=== PATIENT | female | born 1960 | race Caucasian/White ===

== ENCOUNTER 2019-07-13 21:03 | Inpatient (IN) | payer OTHER ==
--- NOTE | 2019-07-13 21:09 | ED ---
Psych HPI <Raphael Gonzales - Last Filed: 07/14/19 10:51> <Tigist Heredia - Last Filed: 07/20/19 14:13> - General Source: RN notes reviewed, old records reviewed Limitations: altered mental status - History of Present Illness MD Complaint: feels depressed, altered mental status -: unknown History of same: Yes Quality: constant, getting worse Improves With: none Worsens With: none Associated Symptoms: denies other symptoms Treatments Prior to Arrival: placed on mental health hold <Ross Herzog - Last Filed: 07/21/19 00:02> - General Stated Complaint: Mental Health Time Seen by Provider: 07/13/19 21:08 - History of Present Illness Initial Comments: This is a 59-year-old female with history of alcohol abuse patient coming in for psychiatric evaluation under petition, patient was found to be unfit and a danger to herself and then brought in for psychiatric evaluation site. Patient is difficult historian difficult to give history of present illness and difficult to question secondary to clinical and psychiatric condition (Ross Herzog) - Related Data Previous Rx's Medication Instructions Recorded Acetaminophen Tab [Tylenol] 650 mg PO Q4HR PRN tab 07/17/19 Folic Acid 1 mg PO DAILY 30 Days tab 07/17/19 [place] ER [Lithobid] 450 mg PO DAILY 30 Days tablet.er 07/17/19 Multivitamins, Thera [Multivitamin 1 each PO DAILY 30 Days tab 07/17/19 (formulary)] Nicotine 14Mg/24Hr Patch [Habitrol] 1 patch TRANSDERM DAILY 14 Days 07/17/19 patch QUEtiapine [SEROquel] 12.5 mg PO DAILY 30 Days tab 07/17/19 QUEtiapine [SEROquel] 100 mg PO HS 30 Days tab 07/17/19 Thiamine [Vitamin B-1] 100 mg PO DAILY 30 Days tab 07/17/19 traZODone HCL [Desyrel] 25 mg PO HS PRN #30 tab 07/17/19 Allergies Allergy/AdvReac Type Severity Reaction Status Date / Time No Known Allergies Allergy Unverified 07/14/19 11:54 Review of Systems ROS Other: All systems not noted in ROS Statement are negative. <Raphael Gonzales - Last Filed: 07/14/19 10:51> ROS Other: All systems not noted in ROS Statement are negative. <Tigist Heredia Tosin - Last Filed: 07/20/19 14:13> ROS Other: All systems not noted in ROS Statement are negative. <Ross Herzog - Last Filed: 07/21/19 00:02> ROS Statement: Those systems with pertinent positive or pertinent negative responses have been documented in the HPI. General Exam General appearance: alert, in no apparent distress Head exam: Present: atraumatic, normocephalic, normal inspection Eye exam: Present: normal appearance, PERRL, EOMI. Absent: scleral icterus, conjunctival injection, periorbital swelling ENT exam: Present: normal exam, mucous membranes moist Neck exam: Present: normal inspection. Absent: tenderness, meningismus, lymphadenopathy Respiratory exam: Present: normal lung sounds bilaterally. Absent: respiratory distress, wheezes, rales, rhonchi, stridor Cardiovascular Exam: Present: regular rate, normal rhythm, normal heart sounds. Absent: systolic murmur, diastolic murmur, rubs, gallop, clicks GI/Abdominal exam: Present: soft, normal bowel sounds. Absent: distended, tenderness, guarding, rebound, rigid Extremities exam: Present: normal inspection, full ROM, normal capillary refill. Absent: tenderness, pedal edema, joint swelling, calf tenderness Back exam: Present: normal inspection Neurological exam: Present: alert, oriented X3, CN II-XII intact Psychiatric exam: Present: normal affect, normal mood Skin exam: Present: warm, dry, intact, normal color. Absent: rash <Ross Herzog - Last Filed: 07/21/19 00:02> Course Vital Signs 07/13/19 07/14/19 07/14/19 21:14 01:55 07:01 Temperature 97.3 F L 97.9 F Pulse Rate 74 74 74 Pulse Rate [ Right Sitting Brachial] Respiratory 16 20 16 Rate Blood Pressure 117/83 114/80 132/72 Blood Pressure [Right Arm] O2 Sat by Pulse 95 100 98 Oximetry 07/14/19 10:34 Temperature 97.3 F L Pulse Rate Pulse Rate [ 108 H Right Sitting Brachial] Respiratory 16 Rate Blood Pressure Blood Pressure 111/68 [Right Arm] O2 Sat by Pulse 98 Oximetry Medical Decision Making - Lab Data Result diagrams: 07/14/19 04:00 07/14/19 04:00 <Raphael Gonzales - Last Filed: 07/14/19 10:51> - Lab Data Result diagrams: 07/14/19 04:00 07/14/19 04:00 <Tigist Heredia - Last Filed: 07/20/19 14:13> - Lab Data Result diagrams: 07/14/19 04:00 07/14/19 04:00 <Ross Herzog - Last Filed: 07/21/19 00:02> - Medical Decision Making The patient is evaluated by EPS and they do feel that the patient would benefit from inpatient psychiatric placement. I did fill out a certification on the patient and she is currently awaiting placement. (Tigist Heredia) - Lab Data Lab Results 07/14/19 07/14/19 07/14/19 Range/Units 04:00 04:00 04:00 WBC 5.3 (3.8-10.6) k/uL RBC 3.70 L (3.80-5.40) m/uL Hgb 12.5 (11.4-16.0) gm/dL Hct 37.9 (34.0-46.0) % MCV 102.3 H (80.0-100.0) fL MCH 33.9 (25.0-35.0) pg MCHC 33.1 (31.0-37.0) g/dL RDW 13.8 (11.5-15.5) % Plt Count 257 (150-450) k/uL Neutrophils % 65 % Lymphocytes % 23 % Monocytes % 7 % Eosinophils % 3 % Basophils % 0 % Neutrophils # 3.4 (1.3-7.7) k/uL Lymphocytes # 1.2 (1.0-4.8) k/uL Monocytes # 0.4 (0-1.0) k/uL Eosinophils # 0.2 (0-0.7) k/uL Basophils # 0.0 (0-0.2) k/uL Macrocytosis Slight Sodium 136 L (137-145) mmol/L Potassium 4.6 (3.5-5.1) mmol/L Chloride 101 (98-107) mmol/L Carbon Dioxide 33 H (22-30) mmol/L Anion Gap 2 mmol/L BUN 2 L (7-17) mg/dL Creatinine 0.46 L (0.52-1.04) mg/dL Est GFR (CKD-EPI)AfAm >90 (>60 ml/min/1.73 sqM) Est GFR (CKD-EPI)NonAf >90 (>60 ml/min/1.73 sqM) Glucose 96 (74-99) mg/dL Estimated Ave Glu mg/dL 85 Hemoglobin A1c 4.6 (4.0-6.0) % Calcium 9.3 (8.4-10.2) mg/dL Total Bilirubin 0.3 (0.2-1.3) mg/dL AST 20 (14-36) U/L ALT 10 (4-34) U/L Alkaline Phosphatase 113 (38-126) U/L Total Protein 6.3 (6.3-8.2) g/dL Albumin 3.4 L (3.5-5.0) g/dL Triglycerides (<150) mg/dL Cholesterol (<200) mg/dL LDL Cholesterol, Calc (0-99) mg/dL HDL Cholesterol (40-60) mg/dL TSH (0.465-4.680) mIU/L Urine Color Urine Appearance (Clear) Urine pH (5.0-8.0) Ur Specific [place] (1.001-1.035) Urine Protein (Negative) Urine Glucose (UA) (Negative) Urine Ketones (Negative) Urine Blood (Negative) Urine Nitrite (Negative) Urine Bilirubin (Negative) Urine Urobilinogen (<2.0) mg/dL Ur Leukocyte Esterase (Negative) Urine Opiates Screen (NotDetected) Ur Oxycodone Screen (NotDetected) Urine Methadone Screen (NotDetected) Ur Propoxyphene Screen (NotDetected) Ur Barbiturates Screen (NotDetected) U Tricyclic Antidepress (NotDetected) Ur Phencyclidine Scrn (NotDetected) Ur Amphetamines Screen (NotDetected) U Methamphetamines Scrn (NotDetected) U Benzodiazepines Scrn (NotDetected) Urine Cocaine Screen (NotDetected) U Marijuana (THC) Screen (NotDetected) 07/14/19 07/14/19 Range/Units 04:00 05:50 WBC (3.8-10.6) k/uL RBC (3.80-5.40) m/uL Hgb (11.4-16.0) gm/dL Hct (34.0-46.0) % MCV (80.0-100.0) fL MCH (25.0-35.0) pg MCHC (31.0-37.0) g/dL RDW (11.5-15.5) % Plt Count (150-450) k/uL Neutrophils % % Lymphocytes % % Monocytes % % Eosinophils % % Basophils % % Neutrophils # (1.3-7.7) k/uL Lymphocytes # (1.0-4.8) k/uL Monocytes # (0-1.0) k/uL Eosinophils # (0-0.7) k/uL Basophils # (0-0.2) k/uL Macrocytosis Sodium (137-145) mmol/L Potassium (3.5-5.1) mmol/L Chloride (98-107) mmol/L Carbon Dioxide (22-30) mmol/L Anion Gap mmol/L BUN (7-17) mg/dL Creatinine (0.52-1.04) mg/dL Est GFR (CKD-EPI)AfAm (>60 ml/min/1.73 sqM) Est GFR (CKD-EPI)NonAf (>60 ml/min/1.73 sqM) Glucose (74-99) mg/dL Estimated Ave Glu mg/dL Hemoglobin A1c (4.0-6.0) % Calcium (8.4-10.2) mg/dL Total Bilirubin (0.2-1.3) mg/dL AST (14-36) U/L ALT (4-34) U/L Alkaline Phosphatase (38-126) U/L Total Protein (6.3-8.2) g/dL Albumin (3.5-5.0) g/dL Triglycerides 122 (<150) mg/dL Cholesterol 199 (<200) mg/dL LDL Cholesterol, Calc 102 H (0-99) mg/dL HDL Cholesterol 73 H (40-60) mg/dL TSH 2.160 (0.465-4.680) mIU/L Urine Color Light Yellow Urine Appearance Clear (Clear) Urine pH 7.5 (5.0-8.0) Ur Specific [place] 1.003 (1.001-1.035) Urine Protein Negative (Negative) Urine Glucose (UA) Negative (Negative) Urine Ketones Negative (Negative) Urine Blood Negative (Negative) Urine Nitrite Negative (Negative) Urine Bilirubin Negative (Negative) Urine Urobilinogen <2.0 (<2.0) mg/dL Ur Leukocyte Esterase Negative (Negative) Urine Opiates Screen Not Detected (NotDetected) Ur Oxycodone Screen Not Detected (NotDetected) Urine Methadone Screen Not Detected (NotDetected) Ur Propoxyphene Screen Not Detected (NotDetected) Ur Barbiturates Screen Not Detected (NotDetected) U Tricyclic Antidepress Not Detected (NotDetected) Ur Phencyclidine Scrn Not Detected (NotDetected) Ur Amphetamines Screen Not Detected (NotDetected) U Methamphetamines Scrn Not Detected (NotDetected) U Benzodiazepines Scrn Not Detected (NotDetected) Urine Cocaine Screen Not Detected (NotDetected) U Marijuana (THC) Screen Not Detected (NotDetected) Disposition Is patient prescribed a controlled substance at d/c from ED?: No Decision to Admit Reason: Admit from EC <Raphael Gonzales N - Last Filed: 07/14/19 10:51> <Tigist Heredia A - Last Filed: 07/20/19 14:13> <Ross Herzog - Last Filed: 07/21/19 00:02> Clinical Impression: Depression, Psychosis Disposition: ADMITTED IP TO THIS [facility] Condition: Stable
[2019-07-14] MEDS ORDERED: traZODone HCL 50 MG TAB PO ONE (01:30)
[2019-07-14 04:07] LABS: Basophils % (A) 0 %; Eosinophils # (A) 0.2 k/uL (0-0.7); Eosinophils % (A) 3 %; HCT 37.9 % (34.0-46.0); HGB 12.5 gm/dL (11.4-16.0); Lymphocytes # (A) 1.2 k/uL (1.0-4.8); Lymphocytes % (A) 23 %; MCH 33.9 pg (25.0-35.0); MCHC 33.1 g/dL (31.0-37.0); MCV 102.3 fL (80.0-100.0); Macrocytosis Slight; Mean Platelet Volume 7.6; Monocytes # (A) 0.4 k/uL (0-1.0); Monocytes % (A) 7 %; Neutrophils # (A) 3.4 k/uL (1.3-7.7); Neutrophils % (A) 65 %; Platelet Count 257 k/uL (150-450); RDW 13.8 % (11.5-15.5); WBC 5.3 k/uL (3.8-10.6)
[2019-07-14 04:18] LABS: Potassium 4.6 mmol/L (3.5-5.1)
[2019-07-14 04:19] LABS: ALT 10 U/L (4-34); AST 20 U/L (14-36); African American GFR (CKD) >90 (>60 ml/min/1.73 sqM); Albumin 3.4 g/dL (3.5-5.0); Alkaline Phosphatase 113 U/L (38-126); Anion Gap 2 mmol/L; Blood Urea Nitrogen 2 mg/dL (7-17); Calcium 9.3 mg/dL (8.4-10.2); Carbon Dioxide 33 mmol/L (22-30); Chloride 101 mmol/L (98-107); Glucose 96 mg/dL (74-99); Non-African American GFR(CKD) >90 (>60 ml/min/1.73 sqM); Sodium 136 mmol/L (137-145); Total Bilirubin 0.3 mg/dL (0.2-1.3); Total Protein 6.3 g/dL (6.3-8.2)
[2019-07-14 06:09] LABS: Appearance,Urine Clear (Clear); Bilirubin,Urine Negative (Negative); Blood,Urine Negative (Negative); Color,Urine Light Yellow; Glucose,Urine (UA) Negative (Negative); Ketones,Urine Negative (Negative); Leukocyte Esterase,Urine Negative (Negative); Nitrite,Urine Negative (Negative); PH, Urine 7.5 (5.0-8.0); Protein,Urine Negative (Negative); Specific Gravity,Urine 1.003 (1.001-1.035); Urobilinogen,Urine <2.0 mg/dL (<2.0)
[2019-07-14 06:20] LABS: Amphetamine Screen,Urine Not Detected (NotDetected); Barbiturate Screen,Urine Not Detected (NotDetected); Benzodiazepines Screen,Urine Not Detected (NotDetected); Cocaine Screen,Urine Not Detected (NotDetected); Methadone Screen, Urine Not Detected (NotDetected); Opiate Screen,Urine Not Detected (NotDetected); Oxycodone Screen, Urine Not Detected (NotDetected); Phencyclidine Screen,Urine Not Detected (NotDetected); Tricyclic Antidepressant,Urine Not Detected (NotDetected); Urn Cannabinoid Scrn Not Detected (NotDetected)
[2019-07-14] MEDS ORDERED: ACETAMINOPHEN TAB 325 MG TAB PO PRN (10:34)
[2019-07-14] MEDS ORDERED: ZIPRASIDONE 20 MG VIAL IM PRN (10:34)
[2019-07-14] MEDS ORDERED: MAGNESIUM HYDROXIDE 2,400 MG/10 ML CUP PO PRN (10:34)
[2019-07-14] MEDS ORDERED: MAG HYDROX/AL HYDROX/SIMETH 30 ML CUP PO PRN (10:34)
[2019-07-14] MEDS ORDERED: LORazepam 1 MG TAB PO PRN (10:34)
[2019-07-14] MEDS ORDERED: THIAMINE HCL 100 MG PO SCH (12:15)
[2019-07-14] MEDS ORDERED: LORazepam 2 MG/ML INJ IM PRN (12:17)
--- NOTE | 2019-07-14 12:36 | P.HP ---
Psychiatric H&P - . H&P Date: 07/14/19 History & Physical: Allergies Allergy/AdvReac Type Severity Reaction Status Date / Time No Known Allergies Allergy Unverified 07/14/19 11:54 Vital Signs Temp 97.3 F L 07/14/19 10:34 Pulse 108 H 07/14/19 10:34 Resp 16 07/14/19 10:34 BP 111/68 07/14/19 10:34 Pulse Ox 98 07/14/19 10:34 Intake & Output 07/13/19 07/14/19 07/14/19 18:59 06:59 18:59 Weight 44.906 kg 44.906 kg Laboratory Last Values WBC 5.3 k/uL (3.8-10.6) 07/14/19 04:00 RBC 3.70 m/uL (3.80-5.40) L 07/14/19 04:00 Hgb 12.5 gm/dL (11.4-16.0) 07/14/19 04:00 Hct 37.9 % (34.0-46.0) 07/14/19 04:00 MCV 102.3 fL (80.0-100.0) H 07/14/19 04:00 MCH 33.9 pg (25.0-35.0) 07/14/19 04:00 MCHC 33.1 g/dL (31.0-37.0) 07/14/19 04:00 RDW 13.8 % (11.5-15.5) 07/14/19 04:00 Plt Count 257 k/uL (150-450) 07/14/19 04:00 Neutrophils % 65 % 07/14/19 04:00 Lymphocytes % 23 % 07/14/19 04:00 Monocytes % 7 % 07/14/19 04:00 Eosinophils % 3 % 07/14/19 04:00 Basophils % 0 % 07/14/19 04:00 Neutrophils # 3.4 k/uL (1.3-7.7) 07/14/19 04:00 Lymphocytes # 1.2 k/uL (1.0-4.8) 07/14/19 04:00 Monocytes # 0.4 k/uL (0-1.0) 07/14/19 04:00 Eosinophils # 0.2 k/uL (0-0.7) 07/14/19 04:00 Basophils # 0.0 k/uL (0-0.2) 07/14/19 04:00 Macrocytosis Slight 07/14/19 04:00 Sodium 136 mmol/L (137-145) L 07/14/19 04:00 Potassium 4.6 mmol/L (3.5-5.1) 07/14/19 04:00 Chloride 101 mmol/L (98-107) 07/14/19 04:00 Carbon Dioxide 33 mmol/L (22-30) H 07/14/19 04:00 Anion Gap 2 mmol/L 07/14/19 04:00 BUN 2 mg/dL (7-17) L 07/14/19 04:00 Creatinine 0.46 mg/dL (0.52-1.04) L 07/14/19 04:00 Est GFR (CKD-EPI)AfAm >90 (>60 ml/min/1.73 sqM) 07/14/19 04:00 Est GFR (CKD-EPI)NonAf >90 (>60 ml/min/1.73 sqM) 07/14/19 04:00 Glucose 96 mg/dL (74-99) 07/14/19 04:00 Calcium 9.3 mg/dL (8.4-10.2) 07/14/19 04:00 Total Bilirubin 0.3 mg/dL (0.2-1.3) 07/14/19 04:00 AST 20 U/L (14-36) 07/14/19 04:00 ALT 10 U/L (4-34) 07/14/19 04:00 Alkaline Phosphatase 113 U/L (38-126) 07/14/19 04:00 Total Protein 6.3 g/dL (6.3-8.2) 07/14/19 04:00 Albumin 3.4 g/dL (3.5-5.0) L 07/14/19 04:00 Urine Color Light Yellow 07/14/19 05:50 Urine Appearance Clear (Clear) 07/14/19 05:50 Urine pH 7.5 (5.0-8.0) 07/14/19 05:50 Ur Specific [place] 1.003 (1.001-1.035) 07/14/19 05:50 Urine Protein Negative (Negative) 07/14/19 05:50 Urine Glucose (UA) Negative (Negative) 07/14/19 05:50 Urine Ketones Negative (Negative) 07/14/19 05:50 Urine Blood Negative (Negative) 07/14/19 05:50 Urine Nitrite Negative (Negative) 07/14/19 05:50 Urine Bilirubin Negative (Negative) 07/14/19 05:50 Urine Urobilinogen <2.0 mg/dL (<2.0) 07/14/19 05:50 Ur Leukocyte Esterase Negative (Negative) 07/14/19 05:50 Urine Opiates Screen Not Detected (NotDetected) 07/14/19 05:50 Ur Oxycodone Screen Not Detected (NotDetected) 07/14/19 05:50 Urine Methadone Screen Not Detected (NotDetected) 07/14/19 05:50 Ur Propoxyphene Screen Not Detected (NotDetected) 07/14/19 05:50 Ur Barbiturates Screen Not Detected (NotDetected) 07/14/19 05:50 U Tricyclic Antidepress Not Detected (NotDetected) 07/14/19 05:50 Ur Phencyclidine Scrn Not Detected (NotDetected) 07/14/19 05:50 Ur Amphetamines Screen Not Detected (NotDetected) 07/14/19 05:50 U Methamphetamines Scrn Not Detected (NotDetected) 07/14/19 05:50 U Benzodiazepines Scrn Not Detected (NotDetected) 07/14/19 05:50 Urine Cocaine Screen Not Detected (NotDetected) 07/14/19 05:50 U Marijuana (THC) Screen Not Detected (NotDetected) 07/14/19 05:50 07/14/19 12:26 IDENTIFYING DATA: Patient is a 59-year-old female who currently lives with her in a house has 4 kids is retired and collects Social Security. HPI: Patient presented to the hospital with the complaints of depression and was petitioned by her who stated that patient has been "throwing things, dumping things out, constantly screaming" and also stated that patient was threatening to overdose on her trazodone and threatening to "burning things in the house". Patient was also found to be extremely aggressive with staff and irritable in the ER and was deemed to be admitted to mental health unit. Patient was seen laying down in her bed this afternoon and appeared to be labile and irritable with proposal lead writer initially however was agreeable to speak to proposal lead writer in the office. She states that she does not know why she is not Hospital and claims that her is "making things up" referring to the petition and denied whatever was written. She claims that she is "here against my will" and states that her children and are plotting against her. She claims that it all started after her birthday in February 2019 that her family started getting against her and arguing with her more. She was labile tearful and irritable during conversation. She spoke about wanting to move and having several arguments with her about their house. She also states that she does not want her kids making decisions for her. She also stated that she believes that her may be wanting a divorce from her. She endorses poor sleep and poor appetite and has poor insight and judgment. Patient denies any suicidal or homicidal ideations intent or plan. At this time patient denies any auditory or visual hallucinations. Patient denies any flight of ideas racing thoughts and increased in goal directed behavior. Patient admits to using marijuana daily and claims that she has a medical marijuana card, states that she drinks 2 glasses of wine per day and claims that her alcohol use has caused problems in her relationship with her . She also endorses smoking cigarettes daily. PAST PSYCHIATRIC HISTORY: Patient states that she has not seen a psychiatrist in the past and has never been admitted to a psychiatric hospital. She denies being on any psychiatric meds in the past. She denies any suicide attempts in the past. PMH: Neuropathy ALLERGIES: as per EMR CHEMICAL DEPENDENCY HISTORY: as per HPI FAMILY PSYCHIATRIC/SUBSTANCE USE HISTORY: She states that 2 of her sisters have depression SOCIAL HISTORY: Patient was born and raised in [place] [facility] and claims that she completed high school. 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 She states that she currently lives with her in a house and has 4 kids live separately. She collects Social Security. MENTAL STATUS EXAM: General Appearance: Patient appears to be stated age is alert, irritable and difficult to redirect at times. Patient appears to have poor hygiene and grooming. Behavior: Patient is seated without any agitated behavior. Irritable at times and tearful. Speech: Patient's speech is fluent and nonpressured. Mood/Affect: Patient reports their mood is depressed, affect is congruent and labile. Suicidality/Homicidality: Patient denies having any homicidal ideation intent or plan. Denies any suicidal ideations intent or plan Perceptions: Patient denies any visual hallucinations and denies any auditory hallucinations Though content/process: Minimizes her symptoms. Endorses paranoia towards her family. Memory and concentration: AOX3, grossly intact for the purposes of this session. Can spell "WORLD" backwards Judgment and insight: poor STRENGTHS/WEAKNESSES: strength is that patient is resilient. Weakness is that jake soni has poor judgment and is impulsive INTELLECT: average IMPRESSIONS: Major depressive disorder, with psychotic features Cannabis use disorder, mild Alcohol abuse Nicotine dependence PLAN: -Patient is admitted under voluntary status to MHU for stabilization of psychiatric symptoms and safety. Patient signed adult voluntary form and medication consent and is placed in patient's chart. -Medications : Will start patient on Seroquel 12.5 mg daily +25 mg daily at bedtime for mood stabilization/psychosis. Trazodone 50 mg daily at bedtime when necessary for insomnia/mood. -Geodon PRN for agitation/aggression -Started thiamine, MVM for etoh use -CIWA protocol with Ativan PRN for ETOH withdrawal -Patient was informed of the risks, benefits and side effects of the medication and patient verbally consented to taking the medications. Patient signed med consent form and was placed in chart. -Internal Medicine consult to perform medical evaluation and physical. -NRT - nicotine patch -SW on board for discharge planning. Encourage patient to participate in groups to work on coping skills. We'll discuss possibility of rehab versus outpatient substance use treatment.
[2019-07-14] MEDS: QUEtiapine 25 MG TAB PO SCH (14:20)
[2019-07-14] MEDS: NICOTINE 14MG/24HR PATCH TRANSDERM SCH (14:20)
[2019-07-14] MEDS: MULTIVITAMINS, THERA 1 EACH TAB PO SCH (14:21)
[2019-07-14] MEDS: THIAMINE 100 MG TAB PO SCH (14:21)
[2019-07-14] MEDS: FOLIC ACID 1 MG TAB PO SCH (14:21)
[2019-07-14] MEDS ORDERED: traZODone HCL 100 MG TAB PO SCH (21:00)
[2019-07-14] MEDS ORDERED: QUEtiapine 25 MG TAB PO SCH (21:00)
[2019-07-15] MEDS: MULTIVITAMINS, THERA 1 EACH TAB PO SCH (10:12)
[2019-07-15] MEDS: NICOTINE 14MG/24HR PATCH TRANSDERM SCH (10:12)
[2019-07-15] MEDS: FOLIC ACID 1 MG TAB PO SCH (10:12)
[2019-07-15] MEDS: THIAMINE 100 MG TAB PO SCH (10:12)
[2019-07-15] MEDS: QUEtiapine 25 MG TAB PO SCH (10:13)
--- NOTE | 2019-07-15 10:33 | P.PN ---
Progress Note - Text Progress Note Date: 07/15/19 Interval History: Patient was seen laying down in her bed this morning and was attempting to org anize her things and put them in a bag and patient was not agreeable to leave her room this morning. Patient appeared to be labile and tearful and was demanding to be discharged. She states that she needs to call her and when asked why patient states that she needs to come and pick her up from the hospital. When patient found out that she was not going to be discharged today patient began getting upset with jingle writer and pointed at him and stated "I want you to show me the paperwork that says of not being discharged". She was tearful and aggressive with jingle writer. She was dismissive as well. She states that she had poor sleep last night in claims to have a "bad" mood. At this time patient denies any suicidal or homical ideations, intent or plan. Patient denies any auditory, visual hallucinations. Patient denies any side effects from the medications and has been compliant with meds. Mental Status Exam: General Appearance: Patient appears to be stated age is alert, irritable and difficult to redirect. Patient appears to have poor hygiene and grooming. Behavior: Patient is seated without any agitated behavior. Irritable at times and tearful. Demanding. Speech: Patient's speech is fluent and nonpressured. Mood/Affect: Patient reports their mood is "bad", affect is congruent and labile. Suicidality/Homicidality: Patient denies having any homicidal ideation intent or plan. Denies any suicidal ideations intent or plan Perceptions: Patient denies any visual hallucinations and denies any auditory hallucinations Though content/process: Minimizes her symptoms. Demanding and hostile. Memory and concentration: AOX3, grossly intact for the purposes of this session Judgment and insight: poor Assessment Major depressive disorder, with psychotic features Cannabis use disorder, mild Alcohol abuse Nicotine dependence Plan: -Patient continues to meet criteria for inpatient psychiatric admission for symptom stabilization and safety. Patient has signed adult voluntary form and medication consent and was placed in patient's chart. -Medications: Will increase Seroquel to 12.5 mg daily +50 mg daily at bedtime for mood stabilization/psychosis. Continue with trazodone 50 mg daily at bedtime when necessary for insomnia/mood. We'll start lithium 450 mg daily for mood stabilization. -When necessary Geodon for agitation/aggression. -Continue with thiamine, MVM for etoh use -CIWA protocol with Ativan PRN for ETOH withdrawal -NRT - nicotine patch -SW on board for discharge planning. Encouraged the patient to participate in milieu. We'll discuss possibility of rehab versus outpatient substance use treatment.
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
[2019-07-15 14:06] LABS: Hemoglobin A1C 4.6 % (4.0-6.0)
[2019-07-15] MEDS ORDERED: QUEtiapine 50 MG TAB PO SCH (21:00)
[2019-07-16] MEDS: traZODone HCL 50 MG TAB PO PRN ×2 (01:51→22:56)
[2019-07-16] MEDS ORDERED: LORazepam 1 MG TAB PO PRN (09:49)
--- NOTE | 2019-07-16 09:49 | P.PN ---
Progress Note - Text Progress Note Date: 07/16/19 Interval History: Patient was seen coming out of her room this morning with her wheelchair and her clothes in bags sitting on the wheelchair and met program writer in the hallway and was agreeable to speak to program writer in the office. Patient today appear to be less labile and more directable and cooperative during the interview. She was not tearful today and was more coherent in her thought process. Patient was fairly focused on discharge today and asked the program writer several times "why is my stuff in these bags I'd intact these bags". She also stated that she believes that one of the staff members told her that she was being discharged. She does claim that her mood has been getting better and feels less "up and down". She states that she has not spoken with her recently however we'll be talking with him today over the phone. She claims that she has been going to groups however was not able to elaborate on them. She stated that she did not sleep well last night and slept approximately 4-5 hours and states that it was "interrupted". At this time patient denies any suicidal or homical ideations, intent or plan. Patient denies any auditory, visual hallucinations. Patient denies any side effects from the medications and has been compliant with meds. Mental Status Exam: General Appearance: Patient appears to be stated age is alert, more directable and less irritable today. Patient appears to have improving hygiene and grooming. Behavior: Patient is seated without any agitated behavior. Less irritable and demanding today. Speech: Patient's speech is fluent and nonpressured. Mood/Affect: Patient reports their mood is "better", affect is congruent Suicidality/Homicidality: Patient denies having any homicidal ideation intent or plan. Denies any suicidal ideations intent or plan Perceptions: Patient denies any visual hallucinations and denies any auditory hallucinations Though content/process: Minimizes her symptoms. More goal oriented and logical. Preoccupied with her stuff in her bags. Memory and concentration: AOX3, grossly intact for the purposes of this session Judgment and insight: poor, and proving mildly. Assessment Major depressive disorder, with psychotic features Cannabis use disorder, mild Alcohol abuse Nicotine dependence Plan: -Patient continues to meet criteria for inpatient psychiatric admission for symptom stabilization and safety. Patient has signed adult voluntary form and medication consent and was placed in patient's chart. -Medications: Will increase Seroquel to 12.5 mg daily + 75 mg daily at bedtime for mood stabilization/psychosis. Continue with trazodone 50 mg daily at bedtime when necessary for insomnia/mood. We'll continue with lithium 450 mg daily for mood stabilization. -When necessary Geodon for agitation/aggression. -Continue with thiamine, MVM for etoh use -CIWA protocol with Ativan PRN for ETOH withdrawal, will discontinue tomorrow. -NRT - nicotine patch -SW on board for discharge planning. Encouraged the patient to participate in milieu. We'll discuss possibility of rehab versus outpatient substance use treatment.
[2019-07-16] MEDS: LITHIUM CARBONATE ER 450 MG TABLET.ER PO SCH (10:08)
[2019-07-16] MEDS: FOLIC ACID 1 MG TAB PO SCH (10:08)
[2019-07-16] MEDS: MULTIVITAMINS, THERA 1 EACH TAB PO SCH (10:08)
[2019-07-16] MEDS: QUEtiapine 25 MG TAB PO SCH (10:09)
[2019-07-16] MEDS: THIAMINE 100 MG TAB PO SCH (10:09)
[2019-07-16] MEDS: NICOTINE 14MG/24HR PATCH TRANSDERM SCH (10:09)
[2019-07-16] MEDS ORDERED: QUEtiapine 25 MG TAB PO SCH (21:00)
[2019-07-17 08:33] VITALS: BP 107/65; PULSE 106; RESP 18; TEMP 98.3
[2019-07-17] MEDS: THIAMINE 100 MG TAB PO SCH (08:35)
[2019-07-17] MEDS: LITHIUM CARBONATE ER 450 MG TABLET.ER PO SCH (08:35)
[2019-07-17] MEDS: QUEtiapine 25 MG TAB PO SCH (08:35)
[2019-07-17] MEDS: NICOTINE 14MG/24HR PATCH TRANSDERM SCH (08:35)
[2019-07-17] MEDS: MULTIVITAMINS, THERA 1 EACH TAB PO SCH (08:35)
[2019-07-17] MEDS: FOLIC ACID 1 MG TAB PO SCH (08:35)
[2019-07-17] MEDS ORDERED: traZODone HCL 50 MG TAB PO PRN (09:37)
--- NOTE | 2019-07-17 09:48 | P.DS ---
Providers Date of admission: 07/14/19 10:28 Expected date of discharge: 07/17/19 Attending physician: Bradley Desir MD Consults: 07/14/19 10:34 Consult Physician Routine Consulting Provider: Ishaan Physician Consult Reason/Comments: H & P and medical care Do you want consulting provider notified?: Yes Primary care physician: Kenya Perez - Discharge Diagnosis(es) (1) Major depressive disorder with psychotic features Current Visit: Yes Status: Acute Priority: High (2) Cannabis use disorder, mild, abuse Current Visit: Yes Status: Acute Priority: Low (3) Alcohol abuse Current Visit: Yes Status: Acute Priority: Medium (4) Nicotine dependence Current Visit: Yes Status: Acute Priority: Low Hospital Course: Admission HPI: Patient is a 59-year-old female who currently lives with her in a house has 4 kids is retired and collects Social Security. Patient presented to the hospital with the complaints of depression and was petitioned by her who stated that patient has been "throwing things, dumping things out, constantly screaming" and also stated that patient was threatening to overdose on her trazodone and threatening to "burning things in the house". Patient was also found to be extremely aggressive with staff and irritable in the ER and was deemed to be admitted to mental health unit. Patient was seen laying down in her bed this afternoon and appeared to be labile and irritable with conventional mortgage underwriter initially however was agreeable to speak to conventional mortgage underwriter in the office. She states that she does not know why she is not Hospital and claims that her is "making things up" referring to the petition and denied whatever was written. She claims that she is "here against my will" and states that her children and are plotting against her. She claims that it all started after her birthday in February 2019 that her family started getting against her and arguing with her more. She was labile tearful and irritable during conversa tion. She spoke about wanting to move and having several arguments with her about their house. She also states that she does not want her kids making decisions for her. She also stated that she believes that her may be wanting a divorce from her. She endorses poor sleep and poor appetite and has poor insight and judgment. Patient denies any suicidal or homicidal ideations intent or plan. At this time patient denies any auditory or visual hallucinations. Patient denies any flight of ideas racing thoughts and increased in goal directed behavior. Patient admits to using marijuana daily and claims that she has a medical marijuana card, states that she drinks 2 glasses of wine per day and claims that her alcohol use has caused problems in her relationship with her . She also endorses smoking cigarettes daily. Hospital course: Upon admission to the unit patient was initially irritable, labile and tearful. Patient was however directable and agreeable to commence treatment. Patient was demanding at times however got along well with other patients on the unit and followed unit protocol. Patient was compliant with the medications and denied any side effects throughout hospital course. Patient was started on lithium 450 mg daily for mood stabilization, Seroquel and titrated up to a dose of 12.5 mg daily +100 mg daily at bedtime for mood stabilization/psychosis/insomnia. Patient was also started on trazodone 25 mg daily at bedtime when necessary for insomnia/mood. Due to patient's history of alcohol abuse patient was placed on CIWA protocol with when necessary Ativan for alcohol withdrawal and was gradually tapered down. Patient spoke of her stressors and engaged in therapy both group and individual. Patient was also seen by medical team for history and physical exam. Throughout the course of the hospitalization patient gradually improved with regards to irritability, mood/emotional lability, sleep and became future oriented with improved insight and judgment. On the day of discharge patient denied any suicidal or homicidal ideations intent or plan denied any auditory or visual hallucinations. Patient endorsed wanting to live for her health and her family. Patient denied any paranoia and did not endorse any delusions. Patient does have a significant history of substance abuse and was counseled on abstaining from all substances including alcohol and marijuana. At this time patient declined wanting to do any inpatient substance use program however will be given resources for outpatient community substance use treatment options including AA meetings. Patient was also counseled on the medications and need for regular compliance and was encouraged to follow-up with their outpatient appointment for mental health and also for primary care. Prior to discharge a family meeting will be arranged by social sciences professor to answer any questions and ensure safety upon discharge. Mental status exam: General Appearance: Patient appears to be older than stated age is alert, pleasant, and thin/frail. Patient is in no acute distress and has fair hygiene and grooming Behavior: Patient is calmly seated without any agitated behavior. More cooperative today. Speech: Patient's speech is fluent and nonpressured. Mood/Affect: Patient reports their mood is "much better", affect is congruent and euthymic. Suicidality/Homicidality: Patient denies having any suicidal or homicidal ideation intent or plan. Perceptions: Patient denies any auditory or visual hallucinations. Though content/process: There is no evidence of any delusional thought content and thought process is linear and goal-directed. Future oriented. Memory and concentration: AOX3, grossly intact for the purposes of this session. Can spell "WORLD" backwards correctly. Judgment and insight: improved with guarded prognosis Impression: Major depressive disorder, with psychotic features Cannabis use disorder, mild Alcohol abuse Nicotine dependence Plan: -Continue with discharge today as patient has improved and stabilized psychiatrically and is not currently an imminent threat to herself and/or others. -Continue medications: Seroquel 12.5 mg daily +75 mg nightly for mood stabilization/psychosis/insomnia. Also continue with trazodone 25 mg nightly when necessary for insomnia/mood, lithium 450 mg daily for mood stabilization. -Patient was counseled on the need for medication compliance and appropriate follow-up at mental health and also primary care for medical issues. Patient verbalized understanding and agreed. -Social work to arrange for and conduct family meeting to ensure safety upon discharge and answer any questions/concerns. Social work also to arrange for patients follow up appointments for psychiatric care along with follow up with primary care provider. -Patient counseled on abstaining from recreational drugs and marijuana and alcohol. Was informed/educated on the adverse effects on their physical and mental health. Patient verbally agreed and understood. At this time patient declined wanting to do any inpatient substance use program however will be given resources for outpatient community substance use treatment options including AA meetings. -Patient was instructed to return to the hospital or seek immediate medical care if their psychiatric or medical symptoms do worsen or reoccur. Allergies Allergy/AdvReac Type Severity Reaction Status Date / Time No Known Allergies Allergy Unverified 07/14/19 11:54 Laboratory Results WBC 5.3 k/uL (3.8-10.6) 07/14/19 04:00 RBC 3.70 m/uL (3.80-5.40) L 07/14/19 04:00 Hgb 12.5 gm/dL (11.4-16.0) 07/14/19 04:00 Hct 37.9 % (34.0-46.0) 07/14/19 04:00 MCV 102.3 fL (80.0-100.0) H 07/14/19 04:00 MCH 33.9 pg (25.0-35.0) 07/14/19 04:00 MCHC 33.1 g/dL (31.0-37.0) 07/14/19 04:00 RDW 13.8 % (11.5-15.5) 07/14/19 04:00 Plt Count 257 k/uL (150-450) 07/14/19 04:00 Neutrophils % 65 % 07/14/19 04:00 Lymphocytes % 23 % 07/14/19 04:00 Monocytes % 7 % 07/14/19 04:00 Eosinophils % 3 % 07/14/19 04:00 Basophils % 0 % 07/14/19 04:00 Neutrophils # 3.4 k/uL (1.3-7.7) 07/14/19 04:00 Lymphocytes # 1.2 k/uL (1.0-4.8) 07/14/19 04:00 Monocytes # 0.4 k/uL (0-1.0) 07/14/19 04:00 Eosinophils # 0.2 k/uL (0-0.7) 07/14/19 04:00 Basophils # 0.0 k/uL (0-0.2) 07/14/19 04:00 Macrocytosis Slight 07/14/19 04:00 Sodium 136 mmol/L (137-145) L 07/14/19 04:00 Potassium 4.6 mmol/L (3.5-5.1) 07/14/19 04:00 Chloride 101 mmol/L (98-107) 07/14/19 04:00 Carbon Dioxide 33 mmol/L (22-30) H 07/14/19 04:00 Anion Gap 2 mmol/L 07/14/19 04:00 BUN 2 mg/dL (7-17) L 07/14/19 04:00 Creatinine 0.46 mg/dL (0.52-1.04) L 07/14/19 04:00 Est GFR (CKD-EPI)AfAm >90 (>60 ml/min/1.73 sqM) 07/14/19 04:00 Est GFR (CKD-EPI)NonAf >90 (>60 ml/min/1.73 sqM) 07/14/19 04:00 Glucose 96 mg/dL (74-99) 07/14/19 04:[address] Glu mg/dL 85 07/14/19 04:00 Hemoglobin A1c 4.6 % (4.0-6.0) 07/14/19 04:00 Calcium 9.3 mg/dL (8.4-10.2) 07/14/19 04:00 Total Bilirubin 0.3 mg/dL (0.2-1.3) 07/14/19 04:00 AST 20 U/L (14-36) 07/14/19 04:00 ALT 10 U/L (4-34) 07/14/19 04:00 Alkaline Phosphatase 113 U/L (38-126) 07/14/19 04:00 Total Protein 6.3 g/dL (6.3-8.2) 07/14/19 04:00 Albumin 3.4 g/dL (3.5-5.0) L 07/14/19 04:00 Triglycerides 122 mg/dL (<150) 07/14/19 04:00 Cholesterol 199 mg/dL (<200) 07/14/19 04:00 LDL Cholesterol, Calc 102 mg/dL (0-99) H 07/14/19 04:00 HDL Cholesterol 73 mg/dL (40-60) H 07/14/19 04:00 TSH 2.160 mIU/L (0.465-4.680) 07/14/19 04:00 Urine Color Light Yellow 07/14/19 05:50 Urine Appearance Clear (Clear) 07/14/19 05:50 Urine pH 7.5 (5.0-8.0) 07/14/19 05:50 Ur Specific [place] 1.003 (1.001-1.035) 07/14/19 05:50 Urine Protein Negative (Negative) 07/14/19 05:50 Urine Glucose (UA) Negative (Negative) 07/14/19 05:50 Urine Ketones Negative (Negative) 07/14/19 05:50 Urine Blood Negative (Negative) 07/14/19 05:50 Urine Nitrite Negative (Negative) 07/14/19 05:50 Urine Bilirubin Negative (Negative) 07/14/19 05:50 Urine Urobilinogen <2.0 mg/dL (<2.0) 07/14/19 05:50 Ur Leukocyte Esterase Negative (Negative) 07/14/19 05:50 Urine Opiates Screen Not Detected (NotDetected) 07/14/19 05:50 Ur Oxycodone Screen Not Detected (NotDetected) 07/14/19 05:50 Urine Methadone Screen Not Detected (NotDetected) 07/14/19 05:50 Ur Propoxyphene Screen Not Detected (NotDetected) 07/14/19 05:50 Ur Barbiturates Screen Not Detected (NotDetected) 07/14/19 05:50 U Tricyclic Antidepress Not Detected (NotDetected) 07/14/19 05:50 Ur Phencyclidine Scrn Not Detected (NotDetected) 07/14/19 05:50 Ur Amphetamines Screen Not Detected (NotDetected) 07/14/19 05:50 U Methamphetamines Scrn Not Detected (NotDetected) 07/14/19 05:50 U Benzodiazepines Scrn Not Detected (NotDetected) 07/14/19 05:50 Urine Cocaine Screen Not Detected (NotDetected) 07/14/19 05:50 U Marijuana (THC) Screen Not Detected (NotDetected) 07/14/19 05:50 Vital Signs Temp 98.3 F 07/17/19 08:32 Pulse 106 H 07/17/19 08:32 Resp 18 07/17/19 08:32 BP 107/65 07/17/19 08:32 Pulse Ox 95 07/17/19 08:32 Patient Condition at Discharge: Stable Plan - Discharge Summary New Discharge Prescriptions: New traZODone HCL [Desyrel] 25 mg PO HS PRN #30 tab PRN Reason: Insomnia Folic Acid 1 mg PO DAILY 30 Days tab Nicotine 14Mg/24Hr Patch [Habitrol] 1 patch TRANSDERM DAILY 14 Days patch [place] Carbonate ER [Lithobid] 450 mg PO DAILY 30 Days tablet.er Multivitamins, Thera [Multivitamin (formulary)] 1 each PO DAILY 30 Days tab QUEtiapine [SEROquel] 12.5 mg PO DAILY 30 Days tab QUEtiapine [SEROquel] 100 mg PO HS 30 Days tab Acetaminophen Tab [Tylenol] 650 mg PO Q4HR PRN tab PRN Reason: Pain/Discomfort Thiamine [Vitamin B-1] 100 mg PO DAILY 30 Days tab Discontinued traZODone HCL [Desyrel] 100 mg PO HS Thiamine HCl [Vitamin B-1] 100 mg PO BID Discharge Medication List Acetaminophen Tab [Tylenol] 650 mg PO Q4HR PRN tab 07/17/19 [Rx] Folic Acid 1 mg PO DAILY 30 Days tab 07/17/19 [Rx] [place] Carbonate ER [Lithobid] 450 mg PO DAILY 30 Days tablet.er 07/17/19 [Rx] Multivitamins, Thera [Multivitamin (formulary)] 1 each PO DAILY 30 Days tab 07/17/19 [Rx] Nicotine 14Mg/24Hr Patch [Habitrol] 1 patch TRANSDERM DAILY 14 Days patch 07/17/19 [Rx] QUEtiapine [SEROquel] 12.5 mg PO DAILY 30 Days tab 07/17/19 [Rx] QUEtiapine [SEROquel] 100 mg PO HS 30 Days tab 07/17/19 [Rx] Thiamine [Vitamin B-1] 100 mg PO DAILY 30 Days tab 07/17/19 [Rx] traZODone HCL [Desyrel] 25 mg PO HS PRN #30 tab 07/17/19 [Rx] Follow up Appointment(s)/Referral(s): None,Stated [REFERRING] - 1-2 days Activity/Diet/Wound Care/Special Instructions: Activity and diet as tolerated. Avoid the use of street drugs and alcohol. Take all medications as prescribed. When you are in need of refills on your medications please contact your medical provider and/or outpatient psychiatrist to have this done. Please go to scheduled outpatient appointment for aftercare treatment. If symptoms return or become worse, call the crisis line at and/or go to the nearest emergency room for evaluation. Discharge Disposition: HOME SELF-CARE
[2019-07-17] MEDS ORDERED: QUEtiapine 100 MG TAB PO SCH (21:00)
== END 2019-07-17 15:50 | disposition home or self-care (01) | DRG 885 ==
LOC: EC 21:03 → 3MHU 07-14 10:28
PROVIDERS: ADMIT Psychiatry & Neurology Psychiatry; ATTEND Psychiatry & Neurology Psychiatry
DX: F32.3 Major depressive disorder, single episode, severe with psychotic features (principal); F10.10 Alcohol abuse, uncomplicated; F12.10 Cannabis abuse, uncomplicated; F17.210 Nicotine dependence, cigarettes, uncomplicated; G47.00 Insomnia, unspecified; G62.9 Polyneuropathy, unspecified; Z79.899 Other long term (current) drug therapy; Z81.8 Family history of other mental and behavioral disorders
CPT/HCPCS: 36415; 80053; 80061; 80306; 81003; 82075; 83036; 84443; 85025; 99285

== ENCOUNTER 2019-10-17 06:28 | Inpatient (IN) | payer OTHER ==
[2019-10-17] MEDS ORDERED: MAG HYDROX/AL HYDROX/SIMETH 30 ML CUP PO PRN (08:38)
[2019-10-17] MEDS ORDERED: MAGNESIUM HYDROXIDE 2,400 MG/10 ML CUP PO PRN (08:38)
[2019-10-17] MEDS ORDERED: ZIPRASIDONE 20 MG VIAL IM PRN (08:38)
[2019-10-17] MEDS: NICOTINE 14MG/24HR PATCH TRANSDERM SCH ×2 (11:28→20:02)
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
--- NOTE | 2019-10-17 14:44 | P.HPMEDMHU ---
History of Present Illness H&P Date: 10/17/19 Chief Complaint: depression Patient is a 59-year-old female history of neuropathy and gait instability, tobacco abuse, prior alcohol use, and marijuana use who presented to the mental health unit secondary to inability to care for self as well as threatening harm to self and others. Patient seen and examined. She is alert to person, year, month, and season. She knew we are in a hospital but not location. She denies any chest pain, shortness of breath, nausea, vomiting, diarrhea, or constipation. She states several weeks ago she had a bout of diarrhea and was worried about "good. However she saw her primary care physician through what sounds like a tell health visit. She reports that her neuropathy is secondary to the [place] use in the past. She states that she does have good feeling in both her legs but just is off balance. She denies any memory issues. She does report inability to sleep and is asking for mediations to help with this, she also states that she is trying to quit smoking. Review of Systems Pertinent positives and negatives as discussed in HPI, a complete review of systems was performed and all other systems are negative. Past Medical History Additional Past Medical History / Comment(s): ETOH, neuropathy due to round up over exposure. History of Any Multi-Drug Resistant Organisms: None Reported Additional Past Surgical History / Comment(s): boil removal Past Psychological History: No Psychological Hx Reported Past Alcohol Use History: Abuse Past Drug Use History: Marijuana - Past Family History Mother Family Medical History: Hyperlipidemia Medications and Allergies Home Medications Medication Instructions Recorded Confirmed Type traZODone HCL 50 mg PO HS 10/17/19 10/17/19 History Allergies Allergy/AdvReac Type Severity Reaction Status Date / Time No Known Allergies Allergy Verified 10/17/19 09:35 Physical Exam Osteopathic Statement: *. No significant issues noted on an osteopathic structural exam other than those noted in the History and Physical/Consult. Vitals: Vital Signs Temp Pulse Resp BP Pulse Ox 10/17/19 13:58 98.3 F 10/17/19 08:48 97.1 F L 88 14 141/88 98 Intake and Output 10/16/19 10/17/19 10/17/19 22:59 06:59 14:59 Other: Weight 44.9 kg General: non toxic, no distress, appears at stated age, disheveled Derm: warm, dry Head: atraumatic, normocephalic, symmetric Eyes: EOMI, no lid lag, anicteric sclera, pupils equal round reactive to light ENT: Trachea midline, ears and nose atraumatic, no thrush, no pharyngeal erythema Mouth: no lip lesion, mucus membranes moist Cardiovascular: S1S2 reg, no murmur, positive posterior tibial pulse bilateral, Lungs: CTA bilateral, no rhonchi, no rales , no accessory muscle use Abdominal: soft, nontender to palpation, no guarding, no appreciable organomegaly Ext: no gross muscle atrophy, no edema, no contractures Neuro: CN II-XI grossly intact, finger to nose normal, no focal neuro deficit Psych: Alert, oriented to year, appropriate affect Cranial Nerve Examination - Cranial Nerves Cranial Nerve II- Optic: Intact Cranial Nerve III- Oculomotor: Intact Cranial Nerve IV- Trochlear: Intact Cranial Nerve V- Trigeminal: Intact Cranial Nerve - Abducens: Intact Cranial Nerve VII- Facial: Intact Cranial Nerve VIII- Auditory: Intact Cranial Nerve IX- Glossopharyngeal: Intact Cranial Nerve X- Vagus: Intact Cranial Nerve XI- Accessory: Intact Cranial Nerve XII- Hypoglossal: Intact Assessment and Plan Assessment: Gait instability -Check B12 level -Continue with walker -Patient states this is her baseline History of alcohol abuse, patient denies current use -Thiamine supplementation Hyponatremia and hypokalemia - K+ replaced at [facility] - encourage oral intake - repeat electrolyte in AM Tobacco abuse -Cessation -Nicotine replacement
[2019-10-17] MEDS: traZODone HCL 50 MG TAB PO SCH (19:57)
[2019-10-18 08:15] LABS: Basophils % (A) 0 %; Eosinophils # (A) 0.1 k/uL (0-0.7); Eosinophils % (A) 1 %; HCT 40.8 % (34.0-46.0); HGB 13.3 gm/dL (11.4-16.0); Lymphocytes # (A) 1.7 k/uL (1.0-4.8); Lymphocytes % (A) 30 %; MCH 29.7 pg (25.0-35.0); MCHC 32.5 g/dL (31.0-37.0); MCV 91.3 fL (80.0-100.0); Mean Platelet Volume 7.7; Monocytes # (A) 0.4 k/uL (0-1.0); Monocytes % (A) 7 %; Neutrophils # (A) 3.5 k/uL (1.3-7.7); Neutrophils % (A) 60 %; Platelet Count 238 k/uL (150-450); RBC 4.47 m/uL (3.80-5.40); RDW 14.7 % (11.5-15.5); WBC 5.8 k/uL (3.8-10.6)
[2019-10-18 08:24] LABS: ALT 14 U/L (4-34); AST 29 U/L (14-36); African American GFR (CKD) >90 (>60 ml/min/1.73 sqM); Albumin 4.9 g/dL (3.5-5.0); Alkaline Phosphatase 78 U/L (38-126); Anion Gap 9 mmol/L; Blood Urea Nitrogen 4 mg/dL (7-17); Carbon Dioxide 28 mmol/L (22-30); Chloride 100 mmol/L (98-107); Cholesterol 284 mg/dL (<200); Glucose 88 mg/dL (74-99); HDL Cholesterol 78 mg/dL (40-60); LDL Cholesterol,Calculated 189 mg/dL (0-99); Non-African American GFR(CKD) >90 (>60 ml/min/1.73 sqM); Potassium 4.3 mmol/L (3.5-5.1); Sodium 137 mmol/L (137-145); Total Bilirubin 1.4 mg/dL (0.2-1.3); Total Protein 7.8 g/dL (6.3-8.2); Triglycerides 86 mg/dL (<150)
[2019-10-18 09:00] LABS: Lithium <0.2 mmol/L
[2019-10-18] MEDS: NICOTINE 14MG/24HR PATCH TRANSDERM SCH (09:03)
[2019-10-18] MEDS: ACETAMINOPHEN TAB 325 MG TAB PO PRN (09:04)
[2019-10-18] MEDS: THIAMINE 100 MG TAB PO SCH (09:04)
--- NOTE | 2019-10-18 12:24 | P.PN ---
Progress Note - Text Progress Note Date: 10/18/19 Clinical Problems: Unspecified neurocognitive disorder, alcohol use disorder severe dependence, rule out substance-induced major neurocognitive disorder, rule out major neurocognitive disorder due to Alzheimer's disease Interim history: I reviewed the medical record and interviewed the patient. She complained about her roommate and requested a room change. I spoke with nursing and unfortunately they were unable to accommodate the room change requests. She is posed no management problem and had behavioral dyscontrol. She is attending therapeutic groups and activities. She slept 7 hours last night. Mental status exam: She presented as a thin and frail-appearing elderly woman with long unkempt hair. She walks slowly with a walker. She made eye contact and attended to the interview. She had a blunted facial expression. She was alert and oriented to person and place. She had no abnormality of psychomotor activity. Her speech was spontaneous with normal rate, rhythm and volume. Affect was anxious but stable and appropriate. She denied suicidal ideation and wishes. She denied homicidal ideation. She denied feeling hopeless, helpless or worthless. She ruminated about her roommate but did not express ideas reference, paranoid ideation or delusions. Her thinking was concrete but his associations were goal-directed. She denied hallucinations and didn't appear to be responding to internal stimuli. Assessment: She said no behavioral difficulties does not appear depressed or overly anxious and has not expressed suicidal homicidal ideation. I suspect that her presentation is related to her decline in functioning related to her cognitive impairment. Plan: Continue inpatient. Probate hearing pending. Safety precautions. Continue trazodone 50 mg at bedtime, Ativan 1 mg 3 times a day when necessary for anxiety or agitation and Geodon 1 mg IM twice a day when necessary for agitation or aggression. Her family will need education about her cognitive impairments and we should clarify early in this admission whether she can return home. Encourage participation in therapeutic groups and activities. Evaluate clinical status response to treatment daily basis.
[2019-10-18] MEDS: traZODone HCL 50 MG TAB PO SCH (20:42)
[2019-10-18] MEDS: LORazepam 1 MG TAB PO PRN (22:53)
[2019-10-19] MEDS: NICOTINE 14MG/24HR PATCH TRANSDERM SCH (08:01)
[2019-10-19] MEDS: THIAMINE 100 MG TAB PO SCH (08:01)
[2019-10-19 10:41] LABS: Hemoglobin A1C 5.6 % (4.0-6.0)
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
[2019-10-19] MEDS: ACETAMINOPHEN TAB 325 MG TAB PO PRN (20:54)
[2019-10-19] MEDS: traZODone HCL 50 MG TAB PO SCH (20:56)
[2019-10-19] MEDS: LORazepam 1 MG TAB PO PRN (23:21)
[2019-10-20] MEDS: NICOTINE 14MG/24HR PATCH TRANSDERM SCH (08:33)
[2019-10-20] MEDS: THIAMINE 100 MG TAB PO SCH (08:33)
--- NOTE | 2019-10-20 12:16 | P.PN ---
Progress Note - Text Progress Note Date: 10/20/19 I reviewed medical records ,I did interview patient and we discussed his treatment plan during team meeting Today vitals:Pulse:97 ,R. 14,BP:112/64 Medically :was started on lipitor today Last night she did receive 1 mg Ativan PRN for anxiety Interval history: She was walking with a walker in the leo and agreed to follow me . She is still asking to be discharged home ,she stated that she slept 7 or 8 hours last night stating "It was best restful sleep" however when I told her that according to RN note she slept only 2 hours ,she replied saying "Is someone watching me here ,I need clock in my room "She stated that she is not depressed "Just frustrated about being here",patient was rambling ,perseverating ,,repeating same stories She No report of any behavioral disturbances. according to SW : plans of having patient return back home ,he will try to pursue guardianship, confirmed that patient is not consuming any alcohol since 05/2019 She started to participate in therapeutic groups and activities Mental status exam:: She presented as a thin, woman who looked much older than her stated age. She made eye contact and appeared to attend to the interview. . She was alert and oriented to person only. She walks slowly with the aid of a wheeled walker. Her speech was spontaneous with normal rate and rhythm. Her affect was bright . She denies suicidal ideation . She denied homicidal ideation. She denied feeling hopeless, helpless or worthless. Her thinking was concrete . She denied hallucinations and did not appear to be responding to internal stimuli. Clinical Problems: Unspecified neurocognitive disorder with delusional thinking, alcohol use disorder rule out neurocognitive disorder due to alcohol use Plan: The patient has cognitive deficit ,not clear for how long this memory deficit has been going on ,it is affecting her social function and her ability to take care of her basic needs,continue inpatient. Probate hearing pending.Deferral meeting scheduled for todayI discussed with the patient to start Namenda but she refused SW to arrange family meeting with for collateral information and discuss post-discharge plan Patient agreed to increase her Trazodone to 100 mg for sleep
[2019-10-20] MEDS: ACETAMINOPHEN TAB 325 MG TAB PO PRN (19:55)
[2019-10-20] MEDS: ATORVASTATIN 40 MG TAB PO SCH (19:56)
[2019-10-20] MEDS: traZODone HCL 100 MG TAB PO SCH (19:57)
[2019-10-20] MEDS: LORazepam 1 MG TAB PO PRN (22:36)
--- NOTE | 2019-10-21 09:22 | P.PN ---
Progress Note - Text Progress Note Date: 10/21/19 I reviewed medical records ,I did interview patient and we discussed his treatment plan during team meeting TODAY VITALS:Temp:97.6,p:92,R:16,BP:137/63 Pain :6/10 in both legs Slept 7 hours but had trouble falling asleep due to pain Interval history: The patient is found in his room he is lying in bed and he agreed to follow me to the office She was walking with a walker She stated that she is not depressed but frustrated as her is mad of her "I do not why ,he is thinking that I am lying about my pain ,he does not want me to use walker ,he does believe PT supposed to make me able to run ",,patient was rambling ,perseverating , she denies any hallucinations ,denies any suicidal or homicidal ideations, she was repeating same stories about being poisoned by pesticides and she was able to win law chacorta . No report of any behavioral disturbances. She has minimal participation in therapeutic groups and activities Mental status exam:: She presented as a thin, woman who looked much older than her stated age. Disheveled,unkept She made eye contact and appeared to attend to the interview. . She was alert and oriented to person only. She walks slowly with the aid of a wheeled walker. Her speech was spontaneous with normal rate and rhythm. Her affect was constricted . She denies suicidal ideation . She denied homicidal ideation. She denied feeling hopeless, helpless or worthless. She was ruminative, obsessional and repeated stories. Her thinking was concrete . She denied hallucinations and did not appear to be responding to internal stimuli. Clinical Problems: Unspecified neurocognitive disorder with delusional thinking, alcohol use disorder rule out neurocognitive disorder due to alcohol use Plan: The patient has cognitive deficit ,not clear for how long this memory deficit has been going on ,it is affecting her social function and her ability to take care of her basic needs,continue inpatient. Add Motrin 400 mg TID for pain ,start Namenda 5 mg continue Trazodone 100 mg SW to arrange family meeting with for collateral information and discuss post-discharge plan Continue PRN Ativan and Geodon Encourage participation in groups and activities
[2019-10-21] MEDS: NICOTINE 14MG/24HR PATCH TRANSDERM SCH (10:31)
[2019-10-21] MEDS: THIAMINE 100 MG TAB PO SCH (10:33)
[2019-10-21] MEDS: IBUPROFEN 400 MG TAB PO SCH ×3 (10:33→20:19)
[2019-10-21] MEDS: MEMANTINE 5 MG TAB PO SCH (10:33)
--- NOTE | 2019-10-21 13:28 | P.PN ---
Progress Note - Text Progress Note Date: 10/21/19 Addendum to previous note: After her case was discussed with SW , was concerned as patient was not sleeping at night ,waking up screaming and yelling ,has irrational fear and paranoia TX: I will add low dose of Risperdal 0.5 mg HS will visit patient sarah and he will give us his feedback regarding her condition
[2019-10-21] MEDS: ATORVASTATIN 40 MG TAB PO SCH (20:18)
[2019-10-21] MEDS: traZODone HCL 100 MG TAB PO SCH (20:19)
[2019-10-21] MEDS ORDERED: risperiDONE 0.5 MG TAB PO SCH (21:00)
[2019-10-22] MEDS: MEMANTINE 5 MG TAB PO SCH (08:41)
[2019-10-22] MEDS: NICOTINE 14MG/24HR PATCH TRANSDERM SCH (08:41)
[2019-10-22] MEDS: IBUPROFEN 400 MG TAB PO SCH ×3 (08:42→20:49)
[2019-10-22] MEDS: THIAMINE 100 MG TAB PO SCH (08:48)
--- NOTE | 2019-10-22 12:38 | P.PN ---
Progress Note - Text Progress Note Date: 10/22/19 I reviewed medical records ,I did interview patient and we discussed his treatment plan during team meeting TODAY VITALS:Temp:97.6,pulse:85,R:14,BP:123/66 Pain :9/10 in both legs Slept 7 hours last night Interval history: The patient is found in his room he is lying in bed and he agreed to follow me to the office She was walking with a walker She stated that she is not depressed and she does not know why her brought her heresaying "I am not drinking any alcohol ",,patient was rambling ,perseverating , she denies any hallucinations ,denies any suicidal or homicidal ideations, she was repeating same stories and asking to be discharged . No report of any behavioral disturbances. According to SW , visited patient yesterday and he does not feel that patient is better ,except she was not repeating herself as often as before She has minimal participation in therapeutic groups and activities Mental status exam:: She presented as a thin, woman who looked much older than her stated age. Disheveled,unkept She made eye contact and appeared to attend to the interview. . She was alert and oriented to person only. She walks slowly with the aid of a wheeled walker. Her speech was spontaneous with normal rate and rhythm. Her affect was labile and was tearful when talking about her . She denies suicidal ideation . She denied homicidal ideation. She denied feeling hopeless, helpless or worthless. She was ruminative, obsessional and repeated stories. Her thinking was concrete . She denied hallucinations and did not appear to be responding to internal stimuli. Clinical Problems: Unspecified neurocognitive disorder with delusional thinking, alcohol use disorder partial remission rule out neurocognitive disorder due to alcohol use Plan: The patient has cognitive deficit ,not clear for how long this memory deficit has been going on ,it is affecting her social function and her ability to take care of her basic needs,continue inpatient. Continue Motrin 400 mg TID for pain , Namenda 5 mg and Trazodone 100 mg, increase Risperdal to 1 mg HS for her paranoia Continue PRN Ativan and Geodon Encourage participation in groups and activities
[2019-10-22] MEDS: risperiDONE 1 MG TAB PO SCH (20:49)
[2019-10-22] MEDS: traZODone HCL 100 MG TAB PO SCH (20:49)
[2019-10-22] MEDS: ATORVASTATIN 40 MG TAB PO SCH (20:49)
[2019-10-23] MEDS: THIAMINE 100 MG TAB PO SCH (08:06)
[2019-10-23] MEDS: MEMANTINE 5 MG TAB PO SCH (08:06)
[2019-10-23] MEDS: NICOTINE 14MG/24HR PATCH TRANSDERM SCH (08:06)
[2019-10-23] MEDS: IBUPROFEN 400 MG TAB PO SCH ×3 (08:06→20:44)
[2019-10-23 10:06] VITALS: BMI 20.3
--- NOTE | 2019-10-23 11:56 | P.PN ---
Progress Note - Text Progress Note Date: 10/23/19 I reviewed medical records ,I did interview patient and we discussed his treatment plan during team meeting TODAY VITALS:Temp:98.2,Pulse:68,R:14,BP:122/58 Pain :8/10 in both legs Slept 6 hours last night Interval history: The patient is found in his room he is lying in bed and he agreed to follow me to the office She was walking with a walker She stated that she is not depressed and she does not know why her brought her here ""I am not depressed just frustrated "patient was tearful saying that she has been worried about her brother who was admitted to [facility] for kidney failure,when I asked her about her needs to take care of her ADL ,she replied "I am not showering till I get home because I have hole on my right ear,"",patient was rambling ,perseverating , she denies any hallucinations ,denies any suicidal or homicidal ideation , she was repeating same stories and asking to be discharged . No report of any behavioral disturbances. She does not participate in therapeutic groups and activities Mental status exam:: She presented as a thin, woman who looked much older than her stated age. Disheveled,unkept She made eye contact and appeared to attend to the interview. . She was alert and oriented to person only. She walks slowly with the aid of a wheeled walker. Her speech was spontaneous with normal rate and rhythm. Her affect was labile and was tearful when talking about her her brother. She denies suicidal ideation . She denied homicidal ideation. She denied feeling hopeless, helpless or worthless. She was ruminative, obsessional and repeated stories. Her thinking was concrete . She denied hallucinations and did not appear to be responding to internal stimuli. Clinical Problems: Unspecified neurocognitive disorder with delusional thinking, alcohol use disorder partial remission ,denies any use since 05/2019,rule out neurocognitive disorder due to alcohol use Plan: The patient has cognitive deficit ,not clear for how long this memory deficit has been going on ,it is affecting her social function and her ability to take care of her basic needs,continue inpatient. Continue Motrin 400 mg TID for pain ,increase Namenda 10 mg continue Trazodone 100 mg and Risperdal 1 mg HS Continue PRN Ativan and Geodon Encourage participation in groups and activities SW note regarding our discharge plan :((Tx team meeting held, case discussed. Anticipate dc Saturday with home health care and PT services. Pt will return home upon dc with and aftercare will be determined prior to dc.
[2019-10-23] MEDS: ATORVASTATIN 40 MG TAB PO SCH (20:43)
[2019-10-23] MEDS: risperiDONE 1 MG TAB PO SCH (20:43)
[2019-10-23] MEDS: traZODone HCL 100 MG TAB PO SCH (20:44)
[2019-10-24] MEDS: IBUPROFEN 400 MG TAB PO SCH ×3 (08:05→20:44)
[2019-10-24] MEDS: NICOTINE 14MG/24HR PATCH TRANSDERM SCH (08:05)
[2019-10-24] MEDS: THIAMINE 100 MG TAB PO SCH (08:05)
[2019-10-24] MEDS: MEMANTINE 10 MG TAB PO SCH (08:05)
[2019-10-24] MEDS: ACETAMINOPHEN TAB 325 MG TAB PO PRN ×2 (09:35→17:58)
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
[2019-10-24] MEDS: traZODone HCL 100 MG TAB PO SCH (20:19)
[2019-10-24] MEDS: risperiDONE 1 MG TAB PO SCH (20:19)
[2019-10-24] MEDS: ATORVASTATIN 40 MG TAB PO SCH (20:19)
[2019-10-25 01:42] VITALS: RESP 16
[2019-10-25] MEDS: THIAMINE 100 MG TAB PO SCH (08:50)
[2019-10-25] MEDS: NICOTINE 14MG/24HR PATCH TRANSDERM SCH (08:50)
[2019-10-25] MEDS: MEMANTINE 10 MG TAB PO SCH (08:51)
[2019-10-25] MEDS: IBUPROFEN 400 MG TAB PO SCH ×3 (08:51→21:35)
--- NOTE | 2019-10-25 09:12 | P.PN ---
Progress Note - Text Progress Note Date: 10/25/19 Interval history: Patient was seen after taking her medications and was speaking to medication nurse and was directable and agreeable to speak with typewriter aligner. Patient claims that her mood has been gradually improving on the unit. She offered no overnight complaints and states that she was sleeping approximately 5-6 hours last night. She states that "I'm not a very good sleeper anyways". She continues to ask several questions about discharge possibly tomorrow. She claims that her anxiety is also improving. She states that she is eating well and going to groups. Patient was polite and thanked typewriter aligner several times. At this time patient denies any suicidal or homicidal ideations intent or plan. Denies any Auditory or visual hallucinations. Patient denies any side effects from the medications and has been compliant with meds. Mental status exam: General Appearance: Patient appears to be thin, frail and older than stated age is alert, directable, and cooperative. Behavior: No agitated behavior. Patient is calm and directable Speech: Patient's speech is fluent and nonpressured. Mood/Affect: Mood is improving mildly, affect is congruent and constricted. Suicidality/Homicidality: Patient denies having any suicidal or homicidal ideation intent or plan. Perceptions: Patient denies any auditory or visual hallucinations. Though content/process: There is no evidence of any delusional thought content and thought process is linear and goal-directed. Focused on discharge. Memory and concentration: AOX3, grossly intact for the purposes of this session Judgment and insight: improving mildly Assessment/Plan: Continue with current diagnosis. Patient continues to meet cr iteria for inpatient psychiatric admission for symptom stabilization and safety.Patient will be maintained on current psychotropic medication regimen. Monitor for medication compliance and for any psychotropic medication side effects. Will continue to monitor ongoing response to treatment. Encouraged participation in milieu.
[2019-10-25] MEDS: traZODone HCL 100 MG TAB PO SCH (21:34)
[2019-10-25] MEDS: ATORVASTATIN 40 MG TAB PO SCH (21:34)
[2019-10-25] MEDS: risperiDONE 1 MG TAB PO SCH (21:35)
[2019-10-26 06:38] VITALS: BP 103/63; PULSE 84; TEMP 98
[2019-10-26] MEDS: NICOTINE 14MG/24HR PATCH TRANSDERM SCH (09:39)
[2019-10-26] MEDS: THIAMINE 100 MG TAB PO SCH (09:39)
[2019-10-26] MEDS: MEMANTINE 10 MG TAB PO SCH (09:39)
[2019-10-26] MEDS: IBUPROFEN 400 MG TAB PO SCH (09:39)
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
== END 2019-10-26 16:04 | disposition home or self-care (01) | DRG 897 ==
LOC: 3MHU 08:12
PROVIDERS: ADMIT Psychiatry & Neurology Psychiatry; ATTEND Psychiatry & Neurology Psychiatry
DX: F10.24 Alcohol dependence with alcohol-induced mood disorder (principal); E87.1 Hypo-osmolality and hyponatremia; R41.9 Unspecified symptoms and signs involving cognitive functions and awareness; F03.90 Unspecified dementia, unspecified severity, without behavioral disturbance, psychotic disturbance, mood disturbance, and anxiety; E78.5 Hyperlipidemia, unspecified; F41.9 Anxiety disorder, unspecified; Z71.6 Tobacco abuse counseling; F17.210 Nicotine dependence, cigarettes, uncomplicated; E78.00 Pure hypercholesterolemia, unspecified; Z79.899 Other long term (current) drug therapy; F32.9 Major depressive disorder, single episode, unspecified; E87.6 Hypokalemia; R26.9 Unspecified abnormalities of gait and mobility; Z74.1 Need for assistance with personal care; Z82.49 Family history of ischemic heart disease and other diseases of the circulatory system
CPT/HCPCS: 80053; 80061; 80178; 82607; 83036; 84443; 85025